=== PATIENT | female | born 1980 | race Two or more races ===

== ENCOUNTER 2019-10-28 03:26 | Emergency (ER) | payer SELFPAY ==
[~2019-10-28] VITALS: Ht 167.6 cm; Wt 63.5 kg
[2019-10-28 03:41] VITALS: BP 120/87
== END 2019-10-28 04:31 | disposition left against medical advice (07) ==
LOC: ER 03:26
DX: F10.129 Alcohol abuse with intoxication, unspecified (principal); Z53.21 Procedure and treatment not carried out due to patient leaving prior to being seen by health care provider